=== PATIENT | female | born 1945 | race Caucasian/White ===

== ENCOUNTER 2017-04-08 07:58 | Emergency (ER) | payer MEDICARE, OTHER ==
[2017-04-08] MEDS ORDERED: ONDANSETRON HCL 4 MG/2 ML VIAL ONE (08:48)
[2017-04-08 08:56] LABS: BLOOD UREA NITROGEN 16 mg/dL (7-17); CALCIUM 9.5 mg/dL (8.4-10.2); CHLORIDE 102 mmol/L (98-107); EST GLOMERULAR FILTRATION RATE > 60 mL/min; GLUCOSE 149 mg/dL (70-100); POTASSIUM 3.6 mmol/L (3.5-5.1); SODIUM 141 mmol/L (137-145)
[2017-04-08 09:26] LABS: URINE MUCUS NONE SEEN (Up to 25%); URINE RBC NONE SEEN (0-5/hpf); URINE SQUAMOUS EPITHELIAL CELL NONE SEEN (<= 15/hpf); URINE WBC NONE SEEN (0-4/hpf)
[2017-04-08 09:33] LABS: URINE APPEARANCE CLEAR; URINE BACTERIA NONE SEEN (<10/hpf); URINE BILIRUBIN NEGATIVE (NEGATIVE); URINE BLOOD TRACE (NEGATIVE); URINE COLOR YELLOW; URINE GLUCOSE NORMAL (NEGATIVE); URINE KETONE NEGATIVE (NEGATIVE); URINE LEUKOCYTE ESTERASE NEGATIVE (NEGATIVE); URINE NITRITE NEGATIVE (NEGATIVE); URINE PROTEIN NEGATIVE (NEG - TRACE); URINE UROBILINOGEN 0.2mg/dL (Normal) (NEG-1mg/dL)
--- NOTE | 2017-04-08 09:56 | CT REPORT ---
HISTORY: Vomiting and headache COMPARISON: None. TECHNIQUE: Axial non-contrast images obtained from skull vertex through foramen magnum. Dose reduction technique was utilized. FINDINGS: There is no atrophy. There is no hemorrhage. There is no hydrocephalus. No mass lesion is identifi ed. Castillo white differentiation adequate, there is no infarction. No midline shift is identified. T he paranasal sinuses are clear. IMPRESSION: Normal head CT. Final Electronic Signature: This report was electronically signed by Sarabjit Cutler MD on 04/08/2017 9:54 AM. shayy /
[2017-04-08] MEDS ORDERED: IBUPROFEN 400 MG TABLET PO ONE (11:17)
--- NOTE | 2017-04-08 11:34 | ER PHYSICIAN DOCUMENTATION ---
Physician Documentation [facility] Name:Nathalia Gonzales Age:71 yrs Sex:Female :1945 Arrival Date:04/08/2017 Time:07:58 Bed1 Private MD: Elvin Mace Disposition: 04/08 11:35 Chart complete. cd Disposition: 04/08/17 10:45 Discharged to Home/Self Care. Impression: Vomiting - Dehydration, Cephalgia - : Due to Dehydration and Altitude Illness. - Condition is Good. - Discharge Instructions: DEHYDRATION (8y-Adult), VOMITING (8y-Adult). - Prescriptions for Zofran 4 mg Oral - take 1 tablet by ORAL route every 6 hours .; 20 tablet. - Medical Reconciliation form form. - Follow up: Private Physician; When: 4- 6 days; Reason: Recheck today's complaints, Continuance of care. - Problem is new. - Symptoms are resolved. - Notes: Rest today.... Take Zofran 4mg under tongue every 6 hours for nausea or vomiting Drink 2 - 3 quarts of water every day for 2 - 3 days. Follow up with your ED Physician in 4 -6 days HPI: 08:27 This 71 yrs old Female presents to ER with complaints of Vomiting, nausea and cd headache. 08:27 The patient presents to the emergency department with nausea, that is moderate, with cd vomiting, that is intermittent, 5 times since the onset of symptoms, described as clear fluid, without any complaints of abdominal pain. Onset: The symptom(s)/episode began/occurred acutely, this morning, 2.5 hour(s) ago. Possible causes: Patient is from [place], [place]. She arrived three days ago for the [email or web address]. She has been very busy the last couple of days and got behind on her PO intake. This morning she became very nauseated and started vomiting. Associated signs and symptoms: Pertinent positives: anorexia, nausea, vomiting, headache, Pertinent negatives: abdominal pain, diarrhea, dysuria, fever, GI bleeding. Severity of symptoms: At their worst the symptoms were moderate in the emergency department the symptoms are unchanged. The patient has not experienced similar symptoms in the past. Historical: - Allergies: No known drug Allergies; - Home Meds: 1. None - PMHx: None; - PSHx: endometriosis related surgery; - Tetanus: < 10 years. - Ebola Screening: : Patient negative for fever greater than or equal to 101.5 degrees Fahrenheit, and additional compatible Ebola Virus Disease symptoms. Patient denies exposure to infectious person. Patient denies travel to an Ebola-affected area in the 21 days before illness onset. No symptoms or risks identified at this time. . - Social history: Smoking status: Patient states was never smoker of tobacco. - Immunization history: Unable to Obtain. ROS: 08:35 Constitutional: Positive for poor PO intake, Negative for chills, fever. cd 08:35 ENT: Negative for acute changes. 08:35 Cardiovascular: Negative for chest pain, palpitations. 08:35 Respiratory: Negative for cough, shortness of breath. 08:35 Abdomen/GI: Positive for nausea, vomiting, anorexia, Negative for abdominal pain, diarrhea, abdominal distension, hematemesis, black/tarry stool, rectal bleeding. 08:35 All other systems are negative. Exam: 08:35 Eyes: Pupils equal round and reactive to light, extra-ocular motions intact. Lids and cd lashes normal. Conjunctiva and sclera are non-icteric and not injected. Cornea within normal limits. Periorbital areas with no swelling, redness, or edema. 08:35 ENT: Nares patent. No nasal discharge, no septal abnormalities noted. Tympanic cd membranes are normal and external auditory canals are clear. Oropharynx with no redness, swelling, or masses, exudates, or evidence of obstruction, uvula midline. Mucous membranes dry Back: No spinal tenderness. No costovertebral tenderness. Full range of motion. Skin: Warm, dry with normal turgor. Normal color with no rashes, no lesions, and no evidence of cellulitis. MS/ Extremity: Pulses equal, no cyanosis. Neurovascular intact. Full, normal range of motion. 08:35 Neuro: Awake and alert, GCS 15, oriented to person, place, time, and situation. Cranial nerves II-XII grossly intact. Motor strength 5/5 in all extremities. Sensory grossly intact. Cerebellar exam normal. Normal gait. 08:35 Constitutional: The patient appears alert, awake, non-diaphoretic, non-toxic, well developed, well nourished, pale. 08:35 Cardiovascular: Rate: normal, Rhythm: regular, Pulses: no pulse deficits are appreciated, Heart sounds: normal, Edema: is not appreciated. 08:35 Respiratory: the patient does not display signs of respiratory distress, Respirations: normal, no acute changes, Breath sounds: are normal, clear throughout. 08:35 Abdomen/GI: Inspection: abdomen appears normal, Bowel sounds: normal, active, Palpation: abdomen is soft and non-tender, rebound tenderness, is not appreciated, voluntary guarding, is not appreciated, involuntary guarding, is not appreciated, Indicators: McBurney's point is not tender, Carroll's sign is negative. Vital Signs: 08:09 BP 181 / 107; Pulse 82; Resp 20; Temp 95.2(TE); Pulse Ox 95% on R/A; Weight 70.31 kg arc (R); Height 5 ft. 6 in. (167.64 cm) (R); Pain 6/10; 10:51 BP 155 / 83; Pulse 63; Resp 16; Pulse Ox 98% on R/A; lp 10:59 BP 150 / 74; Pulse 62; Resp 16; Pulse Ox 95% on R/A; lp 08:09 Body Mass Index 25.02 (70.31 kg, 167.64 cm) arc Chichi Coma Score: 08:35 Eye Response: spontaneous(4). Verbal Response: oriented(5). Motor Response: obeys cd commands(6). Total: 15. MDM: 08:09 Patient medically screened. 08:15 Data interpreted: Pulse oximetry: on room air is 95 %. Interpretation: normal. cd 08:37 Differential diagnosis: gastritis, viral gastroenteritis, Altitude Illness, cd Dehydration, Hypertensive Episode. 08:38 Data reviewed: vital signs, nurses notes, old medical records, and as a result, I will cd continue to observe the patient, administer IV fluids, NS bolus, NS maintenence, Zofran and Tylenol.. 04/08 08:59 Order name: BASIC METABOLIC PANEL; Complete Time: 09:37 EDMS 04/08 09:36 Interpretation: Normal Except: GLUCOSE 149; Hyperglycemia. 04/08 09:34 Order name: UA W/ MICRO -CULTURE IF IND; Complete Time: 09:37 EDMS 04/08 09:37 Interpretation: Normal Except: URINE BLOOD TRACE. 04/08 09:58 Order name: CAT SCAN; HEAD W/O CON 66921; Complete Time: 10:43 EDMS 04/08 10:43 Interpretation: Normal: Report Reviewed. 04/08 08:22 Order name: I & O; Complete Time: 08: 04/08 08:22 Order name: NPO; Complete Time: : 04/08 08:43 Order name: Oxygen; Complete Time: 09:17 tg Dispensed Medications: 08:39 Drug: NS 0.9% 1000 ml; Route: IV; Rate: bolus; Site: right forearm; Delivery: [place] tg Tubing; 09:18 Follow up: IV Status: Completed infusion; IV Intake: 1000ml tg 08:39 Drug: Zofran 4 mg; Route: IVP; Infused Over: 2 mins; Site: right forearm; tg 09:17 Follow up: Response: No change in condition tg 09:18 Drug: NS 0.9% 1000 ml; Route: IV; Rate: bolus; Site: right antecubital; Delivery: tg [place] Tubing; 11:07 Follow up: IV Status: Completed infusion; IV Intake: 1000ml tg 09:38 Drug: Phenergan 12.5 mg; Route: IVP; Site: right antecubital; lp 09:57 Follow up: Response: No adverse reaction tg 09:57 Drug: Dilaudid 0.5 mg; Route: IVP; Site: right forearm; tg 11:07 Follow up: Response: Pain is decreased tg 11:07 CANCELLED (Other Intervention Used): Acetaminophen 975 mg PO once tg 11:08 Drug: Ibuprofen 400 mg; Route: PO; tg 11:33 Follow up: Response: No adverse reaction; No change in condition Signatures: Cash Yates RN RN Hanna Otero RN RN Elvin Rooney MD MD
--- NOTE | 2017-04-08 11:34 | ER NURSING DOCUMENTATION ---
Nurse's Notes [facility] Name:Nathalia Gonzales Age:71 yrs Sex:Female :1945 Arrival Date:04/08/2017 Time:07:58 Bed1 Private MD: Diagnosis:Vomiting - Dehydration;Cephalgia-: Due to Dehydration and Altitude Illness Presentation: 04/08 08:03 Acuity: CHANA 3 tg 08:45 Presenting complaint: Patient states: Headache and vomiting since 0430 today. tg Transition of care: patient was not received from another setting of care. 08:45 Method Of Arrival: Private Vehicle tg Triage Assessment: 08:40 General: Appears uncomfortable, Behavior is cooperative, quiet. Pain: Complains of pain tg in headache. EENT:. Neuro: Level of Consciousness is awake, alert. Cardiovascular:. GI: Reports nausea, vomiting, Denies constipation, diarrhea, pain. : Denies burning with urination. Derm:. Historical: - Allergies: No known drug Allergies; - Home Meds: 1. None - PMHx: None; - PSHx: endometriosis related surgery; - Tetanus: < 10 years. - Ebola Screening: : Patient negative for fever greater than or equal to 101.5 degrees Fahrenheit, and additional compatible Ebola Virus Disease symptoms. Patient denies exposure to infectious person. Patient denies travel to an Ebola-affected area in the 21 days before illness onset. No symptoms or risks identified at this time. . - Social history: Smoking status: Patient states was never smoker of tobacco. - Immunization history: Unable to Obtain. Screenin:41 Infectious Disease Risk Unable to Obtain. Abuse screen: Denies threats or abuse. Denies tg injuries from another. Nutritional screening: No deficits noted. Vital Signs: 08:09 BP 181 / 107; Pulse 82; Resp 20; Temp 95.2(TE); Pulse Ox 95% on R/A; Weight 70.31 kg arc (R); Height 5 ft. 6 in. (167.64 cm) (R); Pain 6/10; 10:51 BP 155 / 83; Pulse 63; Resp 16; Pulse Ox 98% on R/A; lp 10:59 BP 150 / 74; Pulse 62; Resp 16; Pulse Ox 95% on R/A; lp 08:09 Body Mass Index 25.02 (70.31 kg, 167.64 cm) arc Chichi Coma Score: 08:35 Eye Response: spontaneous(4). Verbal Response: oriented(5). Motor Response: obeys cd commands(6). Total: 15. ED Course: 08:02 Patient arrived in ED. arc 08:03 Cash Yates RN is Primary Nurse. tg 08:03 Triage completed. tg 08:09 Elvin Rooney MD is Attending Physician. cd 08:36 Inserted saline lock: 20 gauge in right forearm and blood collected. dg 08:42 Valuables Remains with patient Patient has correct armband on for positive tg identification. Placed in gown. Bed in low position. Call light in reach. Side rails up X 1. 08:43 Oxygen Oxygen administration via nasal cannula @ 2L/min. tg 09:[address] radha 09:[address] pm1 Administered Medications: 08:39 Drug: NS 0.9% 1000 ml; Route: IV; Rate: bolus; Site: right forearm; Delivery: [place] tg Tubing; 09:18 Follow up: IV Status: Completed infusion; IV Intake: 1000ml tg 08:39 Drug: Zofran 4 mg; Route: IVP; Infused Over: 2 mins; Site: right forearm; tg 09:17 Follow up: Response: No change in condition tg 09:18 Drug: NS 0.9% 1000 ml; Route: IV; Rate: bolus; Site: right antecubital; Delivery: tg [place] Tubing; 11:07 Follow up: IV Status: Completed infusion; IV Intake: 1000ml tg 09:38 Drug: Phenergan 12.5 mg; Route: IVP; Site: right antecubital; lp 09:57 Follow up: Response: No adverse reaction tg 09:57 Drug: Dilaudid 0.5 mg; Route: IVP; Site: right forearm; tg 11:07 Follow up: Response: Pain is decreased tg 11:07 CANCELLED (Other Intervention Used): Acetaminophen 975 mg PO once tg 11:08 Drug: Ibuprofen 400 mg; Route: PO; tg 11:33 Follow up: Response: No adverse reaction; No change in condition lp Intake: 09:18 IV: 1000ml; Total: 1000ml. tg 11:07 IV: 1000ml; Total: 2000ml. tg Outcome: 10:45 Discharge ordered by . cd 11:09 Discharged to home ambulatory, with friend. tg 11: Condition: improved 11: Discharge Assessment: Patient awake and alert. 11: Instructed on discharge instructions, follow up and referral plans. medication usage, Prescriptions given X 1. 11:09 IV D/Ion 11:33 Patient left the ED. eulalia 04/09 16:13 Discharge F/U Call: Unable to reach: left voicemail: Signatures: Cash Yates RN RN Syeda Avilez RN RN lc Pavlish, Lena, RN RN lp Daley, Chris, MD MD cd Abbott, Liv Lyon, Jennifer pm1 Cesar, Serena Snell, Jael, Reg Reg arc
== END 2017-04-08 11:34 | disposition home or self-care (01) ==
LOC: ER 07:58
DX: E86.0 Dehydration (principal); R11.2 Nausea with vomiting, unspecified; R51 Headache; T70.29XA Other effects of high altitude, initial encounter
CPT/HCPCS: 70450; 80048; 81001; 96361; 96374; 96375; 99285; J1170; J2405; J2550